=== PATIENT | female | born 1945 | race Caucasian/White ===

== ENCOUNTER 2019-12-27 09:51 | Outpatient (CLI) | payer OTHER, SELFPAY ==
[2019-12-27 10:37] LABS: Alanine Aminotransferase 15 U/L (4-35); Albumin Level 4.1 g/dL (3.5-5.1); Alkaline Phosphatase 69 U/L (38-126); Anion Gap 5 mmol/L (8-16); Aspartate Amino Transferase 21 U/L (14-36); Bilirubin,Total 0.6 mg/dL (0.2-1.3); Blood Urea Nitrogen 17 mg/dL (7-17); Calcium 8.7 mg/dL (8.4-10.2); Carbon Dioxide 28 mmol/L (22-30); Chloride 105 mmol/L (98-107); Cholesterol 204 mg/dL (0-200); Estimated Glomerular Filt Rate > 60; Glucose 101 mg/dL (65-105); HDL Direct 46 mg/dL; Sodium 138 mmol/L (137-145); Triglycerides 191 mg/dL (<150)
[2019-12-27 10:48] LABS: LDL Cholesterol Direct 115 mg/dL
[2019-12-27 11:10] LABS: Vitamin D 25 Hydroxy 44.2 ng/mL
== END 2019-12-27 09:52 | disposition home or self-care (01) ==
PROVIDERS: PCP Internal Medicine; Visit Provider Nurse Practitioner
DX: E78.5 Hyperlipidemia, unspecified (principal); E55.9 Vitamin D deficiency, unspecified
CPT/HCPCS: 36415; 80048; 80061; 80076; 82306

== ENCOUNTER 2020-01-16 12:42 | Outpatient (CLI) | payer OTHER, SELFPAY ==
--- NOTE | ~2020-01-16 | US_ITS ---
EXAMINATION: US soft tissue UE RT DATE: 01/16/2020 13:12 INDICATION: Localized swelling, mass/lump at the radial side of the right hand TECHNIQUE: Multiple grayscale and Doppler ultrasound images of the region of concern at the right pablo d in the region of the thenar eminence were obtained. COMPARISON: None FINDINGS: No abnormal mass or fluid collections identified. There are couple small shadowing degenerative loose osteochondral bodies versus hypertrophic osteophytes in the region of the base of the first metacarp al likely related to osteoarthritis. IMPRESSION: 1. No abnormal mass or fluid collections. 2. Likely osteoarthritis related loose bodies versus osteophytes along the base of the first metacarp al. This could be confirmed with plain radiographs if clinically indicated. Reviewed, dictated and finalized at location A. IMPRESSION: 1. No abnormal mass or fluid collections. 2. Likely osteoarthritis related loose bodies versus osteophytes along the base of the first metacarpal. This could be confirmed with plain radiographs if cli nically indicated.
== END 2020-01-16 12:43 | disposition home or self-care (01) ==
PROVIDERS: PCP Internal Medicine; Visit Provider Internal Medicine
DX: R22.31 Localized swelling, mass and lump, right upper limb (principal)
CPT/HCPCS: 76882

== ENCOUNTER 2020-07-01 17:00 | Outpatient (CLI) | payer OTHER, MEDICARE, SELFPAY | END 2020-07-01 17:01 | disposition home or self-care (01) | LOC: ANHCOVIDVC 17:00 | PROVIDERS: PCP Internal Medicine | DX: Z23 Encounter for immunization (principal) | CPT/HCPCS: 0001A; 91300 ==

== ENCOUNTER 2020-07-22 13:48 | Outpatient (CLI) | payer OTHER, MEDICARE, SELFPAY | END 2020-07-22 13:49 | disposition home or self-care (01) | LOC: ANHCOVIDVC 13:48 | PROVIDERS: PCP Internal Medicine | DX: Z23 Encounter for immunization (principal) | CPT/HCPCS: 0002A; 91300 ==

== ENCOUNTER 2021-01-18 07:04 | Outpatient (CLI) | payer OTHER, SELFPAY ==
[2021-01-18 08:02] LABS: Alanine Aminotransferase 15 U/L (4-35); Alkaline Phosphatase 67 U/L (38-126); Anion Gap 7 mmol/L (8-16); Aspartate Amino Transferase 20 U/L (14-36); Bilirubin,Total 0.5 mg/dL (0.2-1.3); Blood Urea Nitrogen 16 mg/dL (7-17); Calcium 8.7 mg/dL (8.4-10.2); Carbon Dioxide 27 mmol/L (22-30); Chloride 107 mmol/L (98-107); Cholesterol 226 mg/dL (0-200); Estimated Glomerular Filt Rate > 60; Glucose 102 mg/dL (65-110); HDL Direct 48 mg/dL; Potassium 4.1 mmol/L (3.4-5.0); Sodium 141 mmol/L (137-145); Triglycerides 185 mg/dL (<150)
[2021-01-18 08:13] LABS: LDL Cholesterol Direct 119 mg/dL
[2021-01-18 09:03] LABS: Vitamin D 25 Hydroxy 52.7 ng/mL
== END 2021-01-18 07:05 | disposition home or self-care (01) ==
PROVIDERS: PCP Internal Medicine; Visit Provider Nurse Practitioner
DX: E78.5 Hyperlipidemia, unspecified (principal); E55.9 Vitamin D deficiency, unspecified
CPT/HCPCS: 36415; 80053; 80061; 82306

== ENCOUNTER 2021-03-22 14:52 | Outpatient (CLI) | payer OTHER, SELFPAY ==
--- NOTE | ~2021-03-22 | DEXA_ITS ---
Bone Density Report Name: Terra Shi Age: 75 Sex: Female Ethnicity: White Date of : 1945 Indication: osteopenia; monitoring treatment; height loss; postmenopausal Referring Provider: AMELIA GIRON Study: Bone densitometry was performed. Exam Date: March 22, 2021 Accession number: [id number] Bone Density: Region BMD T-score Z-score Classification AP Spine (L1-L4) 0.892 -1.4 1.0 Osteopenia Femoral Neck (Left) 0.641 -1.9 0.2 Osteopenia Total Hip (Left) 0.766 -1.4 0.4 Osteopenia Total Hip Bilateral Avg 0.770 -1.4 0.4 Osteopenia Femoral Neck (Right) 0.636 -1.9 0.2 Osteopenia Total Hip (Right) 0.774 -1.4 0.4 Osteopenia World Health Organization criteria for BMD impression classify patients as: Normal (T-score at or above -1.0), Osteopenia (T-score between -1.0 and -2.5), or Osteoporosis (T-score at or below -2.5). 10-year Fracture Risk: FRAX not reported because: Treated for osteoporosis Previous Exams: Region Exam Age BMD T-score BMD Change BMD Change Date g/cm2 vs Baseline vs Previous AP Spine(L1-L4) 03/22/2021 75 0.892 -1.4 0.003(0.3%) 0.003(0.3%) 01/31/2019 73 0.890 -1.4 Total Hip(Left) 03/22/2021 75 0.766 -1.4 -0.033(-4.2%)* -0.033(-4.2%)* 01/31/2019 73 0.799 -1.2 Total Hip(Right) 03/22/2021 75 0.774 -1.4 -0.035(-4.3%)* -0.035(-4.3%)* 01/31/2019 73 0.809 -1.1 *Denotes significance at 95% confidence level, LSC for AP Spine = 0.022 g/cm2, LSC for Total Hip = 0.027 g/cm2 Clinical Information Provided by Patient: Is being treated for osteoporosis Has used the following medications: Fosamax (i.e. alendronate), Vitamin D Patient maximum height was 64 Menopause Age: 50 Drinks caffeinated beverages Onset of menses at age 15 Number of children 2 Impression: The patient has low bone mass, based on the Left Femoral Neck T-score. The BMD for the Total Hip(Left) decreased, changing by -4.2% since the last DXA exam. The BMD for the Total Hip(Right) decreased, changing by -4.3% since the last DXA exam. Discussion: SIGNIFICANT BONE LOSS OBSERVED. Adherence to therapy (including calcium and vitamin D intake) should be assessed. If compliance is not a factor, review management and exclusion of secondary causes of bone loss. It is important to ask patients whether they are taking their medications and to encourage continued and appropriate compliance with their osteoporosis therapies to reduce fracture risk. It is also importa
--- NOTE | ~2021-03-22 | MM_ITS ---
EXAMINATION: MM screening [facility] BI w anisha HISTORY: Screening mammogram TECHNIQUE: Craniocaudal and mediolateral oblique 3-D tomosynthesis images were obtained and synthetic 2-D images were generated. CAD analysis was submitted and interpreted. COMPARISON: 07/12/2018, 06/18/2018, 05/21/2017, 04/27/2017 BREAST PARENCHYMAL COMPOSITION: There are scattered areas of fibroglandular density. FINDINGS: There is no evidence of suspicious mass, calcification, or architectural distortion to sugg est malignancy in either breast. There has been no suspicious interval change. IMPRESSION: 1. No mammographic evidence of malignancy. 2. Recommend routine screening mammography in one year. BI-RADS Category 1: Negative Reviewed, dictated and finalized at location A. COORDINATOR
== END 2021-03-22 14:53 | disposition home or self-care (01) ==
PROVIDERS: PCP Internal Medicine; Visit Provider Nurse Practitioner
DX: Z12.31 Encounter for screening mammogram for malignant neoplasm of breast (principal); M81.0 Age-related osteoporosis without current pathological fracture; M85.88 Other specified disorders of bone density and structure, other site; M85.852 Other specified disorders of bone density and structure, left thigh; M85.851 Other specified disorders of bone density and structure, right thigh
CPT/HCPCS: 77063; 77067; 77080

== ENCOUNTER 2022-02-07 07:17 | Outpatient (CLI) | payer OTHER, SELFPAY ==
[2022-02-07 07:51] LABS: Alanine Aminotransferase 18 U/L (6-35); Albumin Level 4.3 g/dL (3.5-5.1); Alkaline Phosphatase 69 U/L (38-126); Anion Gap 11 mmol/L (8-16); Aspartate Amino Transferase 21 U/L (14-36); Bilirubin,Total 0.6 mg/dL (0.2-1.3); Blood Urea Nitrogen 17 mg/dL (7-17); Calcium 8.7 mg/dL (8.4-10.2); Carbon Dioxide 27 mmol/L (22-30); Chloride 102 mmol/L (98-107); Cholesterol 223 mg/dL (0-200); Estimated Glomerular Filt Rate > 60; Glucose 106 mg/dL (65-110); HDL Direct 50 mg/dL; Potassium 3.8 mmol/L (3.4-5.0); Sodium 140 mmol/L (137-145); Triglycerides 157 mg/dL (<150)
[2022-02-07 08:06] LABS: LDL Cholesterol Direct 124 mg/dL
[2022-02-07 08:21] LABS: Vitamin D 25 Hydroxy 51.6 ng/mL
== END 2022-02-07 07:18 | disposition home or self-care (01) ==
LOC: ANHLAB 07:19
PROVIDERS: PCP Internal Medicine; Visit Provider Nurse Practitioner
DX: E78.5 Hyperlipidemia, unspecified (principal); E55.9 Vitamin D deficiency, unspecified
CPT/HCPCS: 36415; 80053; 80061; 82306

== ENCOUNTER → 2022-05-15 15:06 | Outpatient (CLI) | payer OTHER, SELFPAY ==
--- NOTE | ~2022-05-15 | MM_ITS ---
EXAMINATION: MM screening [facility] BI w anisha HISTORY: Screening mammogram TECHNIQUE: Craniocaudal and mediolateral oblique 3-D tomosynthesis images were obtained and synthetic 2-D images were generated. CAD analysis was submitted and interpreted. COMPARISON: 03/22/2021, 07/02/2018, 06/18/2018 BREAST PARENCHYMAL COMPOSITION: The breasts are heterogeneously dense, which may obscure small masses . FINDINGS: No suspicious mass, calcification, or architectural distortion are identified in either mouna ast to suggest malignancy. There has been no suspicious interval change. IMPRESSION: 1. No mammographic evidence of malignancy. 2. Recommend routine screening mammography in one year. BI-RADS Category 1: Negative Reviewed, dictated and finalized at location A. OMER SUPPLY CHAIN ANALYST
== END ==
PROVIDERS: PCP Internal Medicine; Visit Provider Internal Medicine
DX: Z12.31 Encounter for screening mammogram for malignant neoplasm of breast (principal)
CPT/HCPCS: 77063; 77067

== ENCOUNTER 2023-02-10 10:22 | Outpatient (CLI) | payer OTHER, SELFPAY ==
[2023-02-10 10:41] LABS: Hematocrit 46.5 % (37.0-47.0); Hemoglobin 15.3 g/dL (12.0-15.0); Mean Corpuscular HGB Conc 32.9 g/dl (32-36); Mean Corpuscular Hemoglobin 29.7 pg (26-34); Mean Corpuscular Volume 90.1 fl (80-100); Mean Platelet Volume 9.6 fl (7.4-10.4); Platelet Count Result 297 k/mm3 (150-375); Red Blood Count 5.16 M/mm3 (4.2-5.4); Red Cell Distribution Width 12.7 % (11.5-14.5); White Blood Count 6.4 K/mm3 (4.5-10.0)
[2023-02-10 11:04] LABS: Alanine Aminotransferase 19 U/L (6-35); Albumin Level 4.3 g/dL (3.5-5.1); Alkaline Phosphatase 75 U/L (38-126); Anion Gap 4 mmol/L (8-16); Aspartate Amino Transferase 24 U/L (14-36); Bilirubin,Total 0.8 mg/dL (0.2-1.3); Blood Urea Nitrogen 17 mg/dL (7-17); Carbon Dioxide 30 mmol/L (22-30); Chloride 106 mmol/L (98-107); Cholesterol 237 mg/dL (0-200); Estimated Glomerular Filt Rate > 60; Glucose 104 mg/dL (65-110); HDL Direct 53 mg/dL; Potassium 4.1 mmol/L (3.4-5.0); Sodium 140 mmol/L (137-145); Triglycerides 160 mg/dL (<150)
[2023-02-10 11:19] LABS: Vitamin D 25 Hydroxy 50.2 ng/mL
[2023-02-10 11:23] LABS: LDL Cholesterol Direct 133 mg/dL
== END 2023-02-10 10:23 | disposition home or self-care (01) ==
LOC: ANHLAB 10:24
PROVIDERS: PCP Family Medicine; Visit Provider Family Medicine
DX: E55.9 Vitamin D deficiency, unspecified (principal); E78.5 Hyperlipidemia, unspecified
CPT/HCPCS: 36415; 80053; 80061; 82306; 85027

== ENCOUNTER 2023-07-25 13:58 | Outpatient (CLI) | payer OTHER, SELFPAY ==
--- NOTE | ~2023-07-25 | XR_ITS ---
EXAMINATION: XR lumbar spine 2-3V DATE: 07/25/2023 14:19 INDICATION: Lumbar radiculopathy TECHNIQUE: Anteroposterior and lateral views of the lumbar spine, and cone-down lateral view of the l umbosacral junction were obtained. COMPARISON: None. FINDINGS: There are 7 degrees of lumbar levocurvature. Bone alignment is normal. There is no fracture . The vertebral body heights are maintained. There is moderate loss of intervertebral disc space heig ht at L1-2 and L2-3. There is mild facet joint osteoarthritis of the lower lumbar spine. IMPRESSION: 1. Mild lumbar spondylosis without acute findings. Reviewed, dictated and finalized at location F.
== END 2023-07-25 13:59 | disposition home or self-care (01) ==
PROVIDERS: PCP Family Medicine; Visit Provider Nurse Practitioner
DX: M47.26 Other spondylosis with radiculopathy, lumbar region (principal)
CPT/HCPCS: 72100

== ENCOUNTER 2023-08-06 14:25 | Outpatient (CLI) | payer OTHER, SELFPAY ==
--- NOTE | ~2023-08-06 | MR_ITS ---
MRI of the lumbar spine Clinical History: Radiculopathy Technique: Axial T2-weighted images, and sagittal T1-weighted, T2-weighted, and and T2 fat-sat images were acquired. Findings: There is no fracture of the lumbar spine. There is minimal grade 1 retrolisthesis of L2 ove r L3. No suspicious bone marrow signal abnormality seen. At L1-L2, there is moderate degenerative disc narrowing with minimal disc bulge and mild facet arthro inocente. No central canal stenosis or neural foraminal narrowing. At L2-L3, there is mild degenerative disc change with minimal disc bulge and mild facet arthropathy. No central canal stenosis. Probable minimal right neural foraminal narrowing. Left neural foramen pre served. At L3-L4, there is mild disc bulge with advanced facet arthropathy. No central canal stenosis. There is moderate to severe right neural foraminal narrowing, and moderate left neural foraminal narrowing. At L4-L5, there is disc bulge and severe facet arthropathy. No central canal stenosis. There is mild bilateral neural foraminal narrowing. At L5-S1, there is mild disc bulge and moderate to advanced facet arthropathy. No central canal steno sis. There is moderate left neural foraminal narrowing, and mild right neural foraminal narrowing. Paravertebral soft tissues are unremarkable. Impression: [id number] degenerative spondylosis, as above. Reviewed, dictated and finalized at [facility]. Impression: [id number] degenerative spondylosis, as above.
== END 2023-08-06 14:26 ==
LOC: MICIMG 14:27
PROVIDERS: PCP Family Medicine; Visit Provider Nurse Practitioner
DX: M47.26 Other spondylosis with radiculopathy, lumbar region (principal)
CPT/HCPCS: 72148

== ENCOUNTER 2023-08-07 15:11 | Emergency (ER) | payer OTHER, SELFPAY ==
[2023-08-07] VITALS (15 sets, daily range): BP systolic 138–168; BP diastolic 51–63; PULSE 63–82; RESP 13–24; TEMP 36.6–36.7; O2SAT 93–98
--- NOTE | ~2023-08-07 | XR_ITS ---
XR femur RT min 2V 08/07/2023 17:09 Indication: Right leg pain Procedure: 2 views right femur Comparison: No prior studies for comparison. Findings: No fracture, subluxation or dislocation. No focal soft tissue abnormality. No foreign brayden s. Impression: 1: No acute bone or joint abnormality. Reviewed, dictated and finalized at location A. Impression: 1: No acute bone or joint abnormality.
--- NOTE | ~2023-08-07 | CT_ITS ---
EXAMINATION: CT femur LT wo con DATE: 08/07/2023 16:57 INDICATION: Left femur fracture TECHNIQUE: Computed tomography (CT) of the left femur was performed without intravenous contrast. The dose-length product was 925.37 mGy-cm. Automated exposure control and iterative reconstruction techn ique were employed. COMPARISON: 08/07/2023 FINDINGS: There is a oblique extra-articular fracture proximal diaphysis of the left femur with appro ximately one and a half bone width dorsal and one half bone width lateral displacement. There is over riding of fracture fragments measuring approximately 3 cm. There is external rotation and valgus angu lation. There is probable intramuscular hematoma in the surrounding muscles with effacement of the fa t planes. There is mild osteoarthritis of the left hip. IMPRESSION: 1. Displaced, angulated extra-articular fracture proximal left femoral diaphysis with overriding of f racture fragments and external rotation. Reviewed, dictated and finalized at location A. IMPRESSION: 1. Displaced, angulated extra-articular fracture proximal left femoral diaphysi s with overriding of fracture fragments and external rotation.
--- NOTE | ~2023-08-07 | XR_ITS ---
XR femur LT min 2V, XR hip LT 2V w AP pelvis 08/07/2023 15:51 Indication: Left hip pain after fall Procedure: 4 views left hip and 2 views left femur Comparison: No prior studies for comparison. Findings: There is a transversely oriented extra-articular fracture proximal left femoral diaphysis w ith lateral displacement, overriding of fracture fragments and varus angulation. There is also a rota tory component. There is mild osteoarthritis of the left Impression: 1: Displaced, angulated overriding fracture of the proximal left femoral diaphysis. Reviewed, dictated and finalized at location A. Impression: 1: Displaced, angulated overriding fracture of the proximal left femoral diaphy sis. Impression: 1: Displaced, angulated overriding fracture of the proximal left femoral diaphy sis.
[2023-08-07 15:37] LABS: Basophils Percent Auto 0.1 % (0.2-1.2); Eosinophils Percent Auto 0.1 % (0-4.4); Hematocrit 42.8 % (37.0-47.0); Hemoglobin 14.3 g/dL (12.0-15.0); Immature Granulocyte Absolute 0.09 K/mm3 (0.00-0.031); Immature Granulocyte Percent A 0.6 % (0-0.5); Lymphocytes Absolute Auto 0.86 K/mm3 (0.9-3.2); Lymphocytes Percent Auto 5.5 % (18.3-44.2); Mean Corpuscular HGB Conc 33.4 g/dl (32-36); Mean Corpuscular Hemoglobin 29.6 pg (26-34); Mean Corpuscular Volume 88.6 fl (80-100); Mean Platelet Volume 9.7 fl (7.4-10.4); Monocytes Absolute Auto 1.1 K/mm3 (0.1-0.6); Neutrophils Absolute Auto 13.6 K/mm3 (1.3-6.7); Neutrophils Percent Auto 86.7 % (45.5-73.1); Platelet Count Result 324 k/mm3 (150-375); Red Blood Count 4.83 M/mm3 (4.2-5.4); Red Cell Distribution Width 13.4 % (11.5-14.5); White Blood Count 15.7 K/mm3 (4.5-10.0)
[2023-08-07 15:50] LABS: Alanine Aminotransferase 26 U/L (6-35); Albumin Level 4.1 g/dL (3.5-5.1); Alkaline Phosphatase 70 U/L (38-126); Anion Gap 8 mmol/L (4-12); Aspartate Amino Transferase 28 U/L (14-36); Blood Urea Nitrogen 26 mg/dL (7-17); Carbon Dioxide 22 mmol/L (22-30); Chloride 107 mmol/L (98-107); Estimated CRCL calculation 70 ml/min; Estimated Glomerular Filt Rate > 60; Glucose 117 mg/dL (65-110); Potassium 3.8 mmol/L (3.4-5.0); Sodium 137 mmol/L (137-145)
[2023-08-07 15:57] LABS: INR 1.1; Prothrombin Time 14.6 Seconds (11.1-14.7)
[2023-08-07] MEDS: SODIUM CHLORIDE 0.9% IV 1,000 ML 125 ML IV CONT (16:24)
[2023-08-07] MEDS: HYDROmorphone HCL INJ (*CRX) 1 MG/ML SYR IV PUSH ×4 (16:25→22:49)
[2023-08-07] MEDS: ONDANSETRON INJ 4 MG/2 ML VIAL IV PUSH (16:25)
--- NOTE | 2023-08-07 16:26 | PC.NURSE ---
Dr. Smallwood in to speak with pt & spouse concerning POC. Both agreeable
--- NOTE | 2023-08-07 17:52 | ED.LOWEXIN ---
HPI - Extremity Injury (Lower) General Chief Complaint: Extremity Injury, Lower <Jairo Ortiz MD - Last Filed: 08/07/23 18:49> Stated Complaint: LLE pain <Jairo Ortiz MD - Last Filed: 08/07/23 18:49> Time Seen by Provider: 08/07/23 15:15 <Jairo Ortiz MD - Last Filed: 08/07/23 18:49> Source: patient <Jairo Ortiz MD - Last Filed: 08/07/23 18:49> Mode of arrival: EMS <Jairo Ortiz MD - Last Filed: 08/07/23 18:49> Limitations: no limitations <Jairo Ortiz MD - Last Filed: 08/07/23 18:49> History of Present Illness HPI Narrative: 78-year-old with a history of osteoporosis here with a complaint of sudden onset of left leg pain since last night. Patient states that she was trying to put a container hand the refrigerator and while she was turning she felt a pop in her left thigh pain since this morning she is unable to bear weight on the leg. She denies any fall. <Jairo Ortiz MD - Last Filed: 08/07/23 18:49> Related Data Allergies/Adverse Reactions: Allergies Allergy/AdvReac Type Severity Reaction Status Date / Time No Known Allergies Allergy Verified 07/31/23 12:34 <Jairo Ortiz MD - Last Filed: 08/07/23 18:49> Review of Systems Review of Systems: All systems reviewed & are unremarkable except as noted in HPI and below <Jairo Ortiz MD - Last Filed: 08/07/23 18:49> Eyes: Eyes: Reports no additional eye complaints <Jairo Ortiz MD - Last Filed: 08/07/23 18:49> ENT: Reports system reviewed and no additional complaints, except as documented <Jairo Ortiz MD - Last Filed: 08/07/23 18:49> Cardiovascular: Cardiovascular: Reports no additional cardiovascular complaints <MD Yasmin Nicholson Last Filed: 08/07/23 18:49> Respiratory: Respiratory: Reports no additional respiratory complaints <Jairo Ortiz MD - Last Filed: 08/07/23 18:49> Gastrointestinal: Gastrointestinal: Reports no additional gastrointestinal complaints <Jairo Ortiz MD - Last Filed: 08/07/23 18:49> Musculoskeletal: Musculoskeletal: Reports as per HPI <Jairo Ortiz MD - Last Filed: 08/07/23 18:49> Neurologic: Reports system reviewed and no additional complaints, except as documented <Jairo Ortiz MD - Last Filed: 08/07/23 18:49> PMFSH Family History Family History: Family History Sibling Patient's sister is in good health Patient's brother is in good health Father Carcinoma of colon Patient's father is Mother Family history of heart disease in male family member before age 55, Onset Age: 92 Patient's mother is Family history of cardiovascular disease, Onset Age: 92 <Jairo Ortiz MD - Last Filed: 08/07/23 18:49> Social History Social History: Social History Smoking status: Never smoker Second hand tobacco smoke exposure: No Alcohol intake: never Substance use: never Substance use type: does not use <Jairo Ortiz MD - Last Filed: 08/07/23 18:49> Course Course Emergency Course: Patient and her pain was notified about the lab work, x-rays CT findings. I discussed with Dr. Martino who reviewed CT and x-ray findings. Patient needs to be transferred to either [facility] or [facility] I spoke to [facility] , they are not accepting pts at this time ,they are in the red zone I spoke to Dr Carroll Sales at [facility] , will accept the pt however ER is not accepting pts. <Jairo Ortiz MD - Last Filed: 08/07/23 18:49> Patient and her pain was notified about the lab work, x-rays CT findings. I discussed with Dr. Martino who reviewed CT and x-ray findings. Patient needs to be transferred to either [facility] or [facility] I spoke to [facility] , they are not accepting pts at this time ,they are in the red zone I spoke to Dr Carroll Sales at [facility] , will accept the pt however ER is not acce
--- NOTE | 2023-08-07 19:31 | PC.NURSE ---
Report to Adelaida HERNANDEZ
[2023-08-08] MEDS: HYDROmorphone HCL INJ (*CRX) 1 MG/ML SYR IV PUSH (00:12)
== END 2023-08-08 00:15 | disposition short-term general hospital (02) ==
PROVIDERS: Family Medicine; Emergency Provider Emergency Medicine; PCP Family Medicine
DX: S79.092A Other physeal fracture of upper end of left femur, initial encounter for closed fracture (principal); M81.0 Age-related osteoporosis without current pathological fracture; X50.9XXA Other and unspecified overexertion or strenuous movements or postures, initial encounter
CPT/HCPCS: 36415; 73502; 73552; 73700; 80053; 85025; 85610; 96361; 96374; 96375; 96376; 99285; J1170; J2405; J7030

== ENCOUNTER 2023-12-19 12:30 | Outpatient (RCR) | payer OTHER, SELFPAY ==
--- NOTE | 2023-11-08 10:01 | OPREHPOC ---
Outpatient Therapy Plan of Care This is a Multidisciplinary Plan of Care that may contain components documented by all disciplines (PT, OT, and ST.) PT Problem 1 PT Problem #1 Knowledge Deficit PT Goal 1 Goal *indep with HEP * correct use of assistive device Target Visit 8 PT Problem 2 PT Problem #2 Impaired Strength PT Goal 1 Goal increase strength of L hip to improve mobility and gait skills 1* supine SLR x 20 reps 2* side lying hip abduction to 5' x 20 reps 3* supine bridge x 20 reps 4* sit/stand without use of UE x 5 reps Target Visit 8 PT Problem 3 PT Problem #3 Impaired Functional Mobility PT Goal 1 Goal 1* 2 minute walking test distance with small base quad cane, 150' 2* 5 reps sit/stand time of 18 seconds 3* up/down 8 steps with small base quad cane, without hand rail, indep 4* pt report walking in community Target Visit 8
--- NOTE | 2023-11-08 10:01 | PTOPEVAL1 ---
Assessment and note entered by Paige Starr, PT Evaluation Information Assessment Status Evaluation Diagnosis s/pL femur fracture with ORIF S72.009A ICD-10 Condition Codes (PT) Difficulty Walking R26.2,R26.9,Weakness R53.1 Onset August 06, 2023 Subjective Information had pain in L leg, did not fall; surgery by Dr Ramesh Watson--return appt Dec 26; had in pt rehab, [facility] PT treatment; have not been going out into community- staying home; is doing HEP from previous therapy and walking in hallway at home now assists with home chores and shopping- -pt had done indep prior to surgery. use wheeled walker; indep with bathing- grab bars, built in seat & dressing; one entry step into home one level and have ramp into front door; GOAL: walk with cane; get ready for trip to [place] for son's wedding; Reported Pain Level Pain Score Self Report Additional Pain Score Comments pain range in the past week 0-2/10; lateral L hip decrease pain with ice and aleve PRN; sleep is not disrupted due to hip pain; Assessment PT Clinical Summary Terra is s/p L femur ORIF in July. She has completed hospital, in pt and [facility] PT services. She is using the wheeled walker in her home. is helping with home tasks, but she is indep with bathing and self care. With the evaluation: decreased strength of L hip in all motions; initiated gait with small base quad cane and stairs with cane and 1 railing; 5 reps sit/stand time of 24 seconds with 1 UE use and 2 minute walking test with small base quad cane, of 65'; Skilled PT services are indicated for LE strengthening, gait and balance retraining, to improve mobility and home activity level, with return to community ambulation and education for HEP and gait dewvice. Plan of Care Interventions Gait Training,Hot Pack/Cold Pack,Manual Therapy, Neuro Re-education,Patient/Caregiver Education, Therapeutic Activities,Therapeutic Exercise PT Services Indicated Yes Treatment Frequency and 2x/w
--- NOTE | 2023-12-13 13:19 | PCPTNOTE ---
pt did not show for today's appt. Called her home--- states they forgot about appt ; reminded him of the next appt and he stated she will be here.
--- NOTE | 2023-12-19 13:11 | PTOPDC ---
Assessment and note entered by Paige Starr, PT Discharge Report Assessment Status Discharge Diagnosis s/pL femur fracture with ORIF S72.009A ICD-10 Condition Codes (PT) Difficulty Walking R26.2,R26.9,Weakness R53.1 Onset August 06, 2023 Subjective Information doing OK walking- use the cane or the wheeled walker; have not had any falls; no longer able to vacuum at home, everything else can do; Reported Pain Level Pain Score Self Report Additional Pain Score Comments no pain in hip over the past week; Assessment PT Clinical Summary Terra has received a total of 7 PT sessions. She did not show for 1 appointment. Compared to the initial evaluation: no longer reports pain in her L hip; increase strength of R and L LE wtih mat exercises and mobility skills; 2 minute walking test distance with small base quad cane from 65' to 160'; 5 reps sit/stand time from 24 to 14 seconds with use of 1 UE; She is using the wheeled walker or small base quad cane for walking--depend upon the distance and how she feels. Education completed for HEP and gait/mobility safety. The goals were achieved, except sit/stand transfer without use of UE's. Discharge PT. Terra is to continue with her HEP and increase walking and activity as tolerated. Plan of Care PT Services Indicated No
== END 2023-12-19 13:45 | disposition home or self-care (01) ==
LOC: ANHPT 12:30
PROVIDERS: PCP Family Medicine; Visit Provider Nurse Practitioner Family
DX: S72.009D Fracture of unspecified part of neck of unspecified femur, subsequent encounter for closed fracture with routine healing (principal)
CPT/HCPCS: 97110; 97112; 97116; 97161; 97530

== ENCOUNTER 2024-02-23 11:11 | Outpatient (CLI) | payer OTHER, SELFPAY ==
[2024-02-23 11:38] LABS: Hemoglobin 14.9 g/dL (12.0-15.0); Mean Corpuscular HGB Conc 32.4 g/dl (32-36); Mean Corpuscular Hemoglobin 29.2 pg (26-34); Mean Corpuscular Volume 90.2 fl (80-100); Mean Platelet Volume 9.9 fl (7.4-10.4); Platelet Count Result 287 k/mm3 (150-375); Red Cell Distribution Width 13.2 % (11.5-14.5); White Blood Count 7.7 K/mm3 (4.5-10.0)
[2024-02-23 11:47] LABS: Hemoglobin A1C 5.1 % (<5.7)
[2024-02-23 11:51] LABS: Alanine Aminotransferase 16 U/L (6-35); Albumin Level 4.2 g/dL (3.5-5.1); Alkaline Phosphatase 133 U/L (38-126); Anion Gap 7 mmol/L (4-12); Aspartate Amino Transferase 20 U/L (14-36); Bilirubin,Total 0.8 mg/dL (0.2-1.3); Blood Urea Nitrogen 21 mg/dL (7-17); Calcium 8.9 mg/dL (8.4-10.2); Carbon Dioxide 29 mmol/L (22-30); Chloride 103 mmol/L (98-107); Cholesterol 217 mg/dL (0-200); Estimated Glomerular Filt Rate > 60; Glucose 98 mg/dL (65-110); HDL Direct 49 mg/dL; Potassium 4.3 mmol/L (3.4-5.0); Sodium 139 mmol/L (137-145); Triglycerides 225 mg/dL (<150)
[2024-02-23 12:02] LABS: LDL Cholesterol Direct 107 mg/dL
[2024-02-23 12:30] LABS: Vitamin D 25 Hydroxy 40.7 ng/mL
== END 2024-02-23 11:12 | disposition home or self-care (01) ==
PROVIDERS: PCP Family Medicine; Visit Provider Family Medicine
DX: E78.5 Hyperlipidemia, unspecified (principal); I10 Essential (primary) hypertension; M81.0 Age-related osteoporosis without current pathological fracture; R73.9 Hyperglycemia, unspecified; E55.9 Vitamin D deficiency, unspecified
CPT/HCPCS: 36415; 80053; 80061; 82306; 83036; 85027

== ENCOUNTER 2024-07-23 16:39 | Outpatient (CLI) | payer OTHER, SELFPAY ==
[2024-07-23 17:06] LABS: Alanine Aminotransferase 16 U/L (6-35); Aspartate Amino Transferase 28 U/L (14-36)
--- OUTSIDE RECORDS SUMMARY | 2024-07-23 17:17 | XMS_ITS | Clinical Summary ---
Author Organization [facility] Address [address] [place] [address] Phone Care Team Providers Care Auditing Manager Name Role Phone Tiago Smith MD Primary Care Provider [phone] Allergies No known active allergies Medications sennosides-docu sate sodium (SENNA-S) 8.6-50 mg tablet Take 2 Tablets by mouth 2 times daily. 08/14/2023 Active polyethylene glycol (MIRALAX) 17 gram Powder in Packet Take 1 Packet (17 Grams) by mouth 1 time daily as needed for Constipation . 08/14/2023 Active multivitamin tx with iron and folic acid tablet 18-400 mg-mcg Tablet Take 1 Tablet by mouth daily. 08/15/2023 Active HYDROcodone-john taminophen (NORCO) 5-325 mg tabletIndicatio ns:Closed displaced comminuted fracture of shaft of left femur, initial encounter ([facility]) Take 1 Tablet by mouth every 4 hours as needed for Pain. Max Daily Amount: 6 Tablets 20 Tablet 08/14/2023 Active amLODIPine (NORVASC) 5 mg tablet Take 1 Tablet (5 mg) by mouth daily. 08/15/2023 Active Active Problems Problem Noted Date Diagnosed Date Hypertension 08/14/2023 Age-related osteoporosis wit h current pathological fracture with routine healing 08/08/2023 Closed left hip fracture, initial encounter 07/29 Closed displaced comminuted fracture of shaft of left femur 08/08/2023 Encounters Date Type Department Care Team Description 06/03/2024 External Device Data [facility] ABSTRACTION Provider, Abstract 05/21/2024 External Device Data [facility] ABSTRACTION Provider, Abstract 05/21/2024 External Device Data [facility] ABSTRACTION Provider, Abstract from Last 3 Months Social History Tobacco Use Types Packs/Day Years Used Date Smoking Tobacco: Never Tobacco Cessation:Counseling Given: Not Answered Alcohol Use Standard Drinks/Week Comments Never 0 (1 standard drink = 0.6 oz pur e alcohol) Feeling Safe Answer Date Recorded Are you in a relationship wi th someone who hurts you emotionally and/or physically? No 08/08/2023 Food Insecurity Answer Date Recorded Social/Environmental Concerns No concerns Transportation Needs Answer Date Record ed Social/Environmental Concerns No concerns Housing Stability Answer Date Recorded Social/Environmental Concerns No concerns Utility Needs Answer Date Recorded Social/Environmental Concerns No concerns Comments Unknown Sex and Gender Information Value Date Recorded Sex Assigned at Not on file Legal Sex Female 7:16 PM CDT Gender Identity Not on file Sexual Orientation Not on file Last Filed Vital Signs Vital Sign Reading Time Taken Comments Blood Pressure 144/56 08/14/2023 4:51 AM CDT Pulse 80 08/14/2023 4:51 AM CDT Temperature 36.4 C (97.5 F) 08/14/2023 4:51 AM CDT Respiratory Rate 18 08/14/2023 4:51 AM CDT Oxygen Saturation 93% 08/14/2023 4:51 AM CDT Inhaled Oxygen Concentration - - Weight 73.3 kg (161 lb 11.2 oz) 08/08/2023 6:34 AM CDT Height 157.5 cm (5' 2 ) 08/08/2023 6:34 AM CDT Body Mass Index 29.58 08/08/2023 6:34 AM CDT Plan of Treatment Health Maintenance Due Date Last Done Comments DTAP/TDAP/TD VACCINES (1 - Tdap) 1964 PNEUMOCOCCAL VACCINE 50+ YEARS (1 of 1 - PCV) 05/28/18 96 ZOSTER VACCINE (1 of 2) 1995 OSTEOPOROSIS SCREENING 2010 RSV VACCINE (60+ or ) (1 - 1-dose 75+ series) 2020 INFLUENZA VACCINE (#1) 2023 Medicare Advantage (ID) Prev entative Visit/Annual Wellness Visit 04/30/2024 Medical Devices Implanted Type Area Senior Vice President & General Counsel Device Identifier Shelf Expiration Date Model / Serial / Lot 11mm / Ti Deshawn Frn / Pf 360mm / Left - Sterile Implanted:Qty: 1 on 08/08/2023 by Ramesh Watson MD at [facility] Left: Femur [employer] [facility] 06/28/2031 04.033.137 S / / [id number] Description:Material: Ti-gAI -7Nb 5.0 X 68 Nail Locking Screw Implanted:Qty: 1 on 08/08/2023 by Ramesh Watson MD at [facility] Left: Femur [employer] [facility] 04.045.068 / / Description:All Synthes comp onents, Requisition, #[id number] 5.0 X 34 Nail Locking Screw Implanted:Qty: 1 on 08/08/2023 by Ramesh Watson MD at [facility] Left: Femur [employer] [facility] 04.045.034 / / 5.0 X 62 Nail Locking Screw Implanted:Qty: 1 on 08/08/2023 by Ramesh Watson MD at [facility] Left: Femur [employer] [facility] 04.045.062 / / Insurance [facility] Address: [place] [address] Advance Directives For more information, please contact: [phone] * Full Code (Latest Code Status on File) Date Activated Date Inactivated Comments 08/09/2023 12:58 AM 08/14/2023 4:34 PM * Full Code Date Activated Date Inactivated Comments 08/08/2023 11:39 AM 08/09/2023 12:58 AM * Default Full Code - Needs Discussion Date Activated Date Inactivated Comments 08/08/2023 8:47 AM 08/08/2023 11:39 AM Care Teams Auditing Manager Relationship Specialty Start Date End Date Tiago Smith MD [address] [place] [id number] PCP - General Family Practice 08/08/23
--- OUTSIDE RECORDS SUMMARY | 2024-07-23 17:17 | XMS_ITS | Continuity of Care Document ---
Author Organization [facility] Address [address] [place] [address] Phone Care Team Providers Care Live Study Manager Name Role Phone Flora Rosen Unavailable Unavailable Advance Directives Directive Yes / No Effective Date File Name No Information Encounters Encounter Description Practice Location Reason(s) For Visit Diagnoses Date Provider Providers Copied on Encounter [facility], [address], [place], [place], [id number], [place] tel:[phone] [facility] No Information Nov-0 6-200 0 Jessika Hines. [address] , [address], [place], [address], [place]. tel:[phone] Family History Family Member Type Diagnosis Age At Onset No Information Payers Payer name Insurance type Covered constitution party ID Authoriza tion(s) No Information Social History [...]
--- OUTSIDE RECORDS SUMMARY | 2024-07-23 17:17 | XMS_ITS ---
Author Name Rayna Pacheco Address [address] [place] [address] Phone [phone] Organization [facility] ice Address [address] [place] [address] Phone [phone] Care Team Providers Care Former Hand Name Role Phone Rayna Pacheco Unavailable Manny Rice Unavailable [phone] Ish Ramirez Unavailable Functional Status Mental Status Allergies and Intolerances Encounters Immunizations Medications Problems Vital Signs Reason for Referral
== END 2024-07-23 16:40 | disposition home or self-care (01) ==
LOC: ANHLAB 16:42
PROVIDERS: PCP Family Medicine; Visit Provider Podiatrist Foot & Ankle Surgery
DX: B35.1 Tinea unguium (principal)
CPT/HCPCS: 36415; 84450; 84460

== ENCOUNTER 2024-09-02 14:03 | Outpatient (CLI) | payer OTHER, SELFPAY ==
--- OUTSIDE RECORDS SUMMARY | 2024-09-02 14:06 | XMS_ITS ---
Author Name Auto Generated, Auto Generated Organization [employer] [facility] ices Address [address] [place] [address] Phone [phone] Care Team Providers Care Straightedge Machine Operator Helper Name Role Phone Rayna Pacheco Unavailable [phone] Manny Rice Unavailable [phone] Ish Ramirez Unavailable Functional Status No Results Mental Status No Results Allergies and Intolerances Name Onset Date Reaction Severity No Known Allergies (Allergy) SunAug 13 15:24:00 EDT 2023 Medications Medication Directions Start Date End Date Stimulant Laxative Plus 8.6 mg-50 mg tablet 2 tab TABLET Oral PRN 2 Times Daily Indication: Constipation SunAug 25 13:43:00 EDT 2023August 31 01:00:00 EDT 2023 Imodium A-D 2 mg tablet 1 tab TABLET Ora l PRN Every 6 Hours Indication: Diarrhea SunAug 18 17:54:00 EDT 2023August 31 01:00:00 EDT 2023 meloxicam 15 mg tablet 1 tab TABLET Oral 1 Time Daily Indication: Pain SunAug 14 10:23:00 EDT 2023August 29 10:03:00 EDT 2023 TubersoL 5 tub. unit/0.1 mL intradermal injection solution 0.1 ml VIAL (ML) Intradermal 1 Time Weekly for 2 Weeks Indication: Rule out TB 1st injection on admission, then one week after. Read between 48 and 72 hours SunAug 14 13:30:00 EDT 2023August 28 13:29:00 EDT 2023 TubersoL 5 tub. unit/0.1 mL intradermal injection solution Read Results VIAL (ML) Other 1 Time Weekly for 2 Weeks Indication: Rule out TB Read results between 48-72 hours after 1st and 2nd (1 week apart). If positive do chest x-ray. SunAug 14 13:30:00 EDT 2023August 28 13:29:00 EDT 2023 HYDROcodone 5 mg-acetaminophen 325 mg tablet 1 tab TABLET Oral PRN Every 4 Hours Indication: Pain SunAug 14 13:30:00 EDT 2023August 31 01:00:00 EDT 2023 amLODIPine 5 mg tablet 1 tab TABLET Oral 1 Time Daily Indication: HTN SunAug 13 17:02:00 EDT 2023August 31 01:00:00 EDT 2023 HYDROcodone 5 mg-acetaminophen 325 mg tablet 1 tab TABLET Oral PRN Every 4 Hours Indication: Pain SunAug 13 17:07:00 EDT 2023Aug 14 13:56:00 EDT 2023 multivitamin with iron tablet 1 tab TABLET Oral 1 Time Daily Indication: Supplement SunAug 13 17:10:00 EDT 2023August 31 01:00:00 EDT 2023 polyethylene glycoL 3350 17 gram oral powder packet 17 gm POWDER IN PACKET (EA) Oral PRN 1 Time Daily Indication: Constipation SunAug 13 17:12:00 EDT 2023August 31 01:00:00 EDT 2023 Stimulant Laxative Plus 8.6 mg-50 mg tablet 1 tab TABLET Oral 2 Times Daily Indication: Constipation SunAug 13 17:13:00 EDT 2023Aug 14 00:39:00 EDT 2023 enoxaparin 40 mg/0.4 mL subcutaneous syringe 40 mg SYRINGE (ML) Subcutaneous 1 Time Daily for 21 Days Indication: Clot prevention. SunAug 14 02:00:00 EDT 2023August 31 01:00:00 EDT 2023 Stimulant Laxative Plus 8.6 mg-50 mg tablet 2 tab TABLET Oral 2 Times Daily Indication: Constipation SunAug 14 02:00:00 EDT 2023Aug 25 13:44:00 EDT 2023 Problems Active Concerns * Age-related osteoporosis with current pathological fracture, left femur, subsequent encounter for fracture with routine healing* Code: * Start Date: SunAug 13 00:00:00 EDT 2023 * End Date: * Text: * Essential (primary) hypertension* Code: * Start Date: SunAug 13 00:00:00 EDT 2023 * End Date: * Text: * Presence of other bone and tendon implants* Code: * Start Date: SunAug 13 00:00:00 EDT 2023 * End Date: * Text: * assistant terminal manager (current) use of anticoagulants* Code: * Start Date: SunAug 13 00:00:00 EDT 2023 * End Date: * Text: * skilled nursing (current) use of bisphosphonates* Code: * Start Date: SunAug 13 00:00:00 EDT 2023 * End Date: * Text: * Adverse effect of other drugs, medicaments and biological substances, subsequent encounter* Code: * Start Date: SunAug 13 00:00:00 EDT 2023 * End Date: * Text: * Constipation, unspecified* Code: * Start Date: SunAug 13 00:00:00 EDT 2023 * End Date: * Text: * Unsteadiness on feet* Code: * Start Date: SunAug 13 00:00:00 EDT 2023 * End Date: * Text: * Weakness* Code: * Start Date: SunAug 13 00:00:00 EDT 2023 * End Date: * Text: Reason for Referral Past Medical History
--- OUTSIDE RECORDS SUMMARY | 2024-09-02 14:06 | XMS_ITS | Continuity of Care Document ---
Author Organization [facility] Address [address] [place] [address] Phone Care Team Providers Care Forensic Audit Expert Name Role Phone Flora Rosen Unavailable Unavailable Advance Directives Directive Yes / No Effective Date File Name No Information Encounters Encounter Description Practice Location Reason(s) For Visit Diagnoses Date Provider Providers Copied on Encounter [facility], [address], [place], [place], [address], [place] tel:[phone] [facility] No Information Nov0 6-200 0 Jessika Hines. [address] , [address], [place], [address], [place]. tel:[phone] Family History Family Member Type Diagnosis Age [...]
--- OUTSIDE RECORDS SUMMARY | 2024-09-02 14:06 | XMS_ITS ---
Author Name Auto Generated, Auto Generated Organization [employer] [facility] ices Address [address] [place] [address] Phone [phone] Care Team Providers Care Utilization Management Um Nurse Name Role Phone Rayna Pacheco Unavailable [phone] Manny Rice Unavailable [phone] Ish Ramirez Unavailable Functional Status No Results [...] 2023 * End Date: * Text: * buttermaker helper (current) use of anticoagulants* Code: * Start Date: SunAug 13 00:00:00 EDT 2023 * End Date: * Text: * senior care (current) use of bisphosphonates* Code: * Start [...]
--- OUTSIDE RECORDS SUMMARY | 2024-09-02 14:06 | XMS_ITS | Clinical Summary ---
Author Organization [facility] Address [address] [place] [address] Phone Care Team Providers Care Fundraising Consultant Name Role Phone Tiago Smith MD Primary Care Provider [phone] Allergies No known active allergies Medications sennosides-docu [...] of shaft of left femur, initial encounter ([facility]) Take 1 Tablet by mouth every [...] Encounters Date Type Department Care Team Description 08/19/2024 External Device Data [facility] ABSTRACTION Provider, Abstract 07/29/2024 External Device Data [facility] ABSTRACTION Provider, Abstract 07/29/2024 External Device Data [facility] ABSTRACTION Provider, Abstract 07/29/2024 External Device Data ST[facility] ABSTRACTION Provider, Abstract [...] 75+ series) 2020 INFLUENZA VACCINE (#1) 2023 Medical Devices Implanted Type Area Towboat Pilot Device Identifier Shelf Expiration Date Model / Serial / Lot 11mm / Ti Deshawn Frn / Pf 360mm / Left - Sterile Implanted:Qty: 1 on 08/08/2023 by Ramesh Watson MD at [facility] Left: Femur [employer] [facility] 06/28/2031 04.033.137 S / / [id number] Description:Material: Ti-gAI -7Nb 5.0 X 68 Nail Locking Screw Implanted:Qty: 1 on 08/08/2023 by Ramesh Watson MD at [facility] Left: Femur [employer] [facility] 04.045.068 / / Description:All Synthes comp onents, Requisition, #[id number] 5.0 X 34 Nail Locking Screw Implanted:Qty: 1 on 08/08/2023 by Ramesh Watson MD at [facility] Left: Femur [employer] [facility] 04.045.034 / / 5.0 X 62 Nail Locking Screw Implanted:Qty: 1 on 08/08/2023 by Ramesh Watson MD at [facility] Left: Femur [employer] [facility] 04.045.062 / / Insurance Advance Directives For more information, please contact: [phone] * Full Code (Latest Code Status on File) Date Activated Date Inactivated Comments 08/09/2023 12:58 AM 08/14/2023 4:34 PM * Full Code Date Activated Date Inactivated Comments 08/08/2023 11:39 AM 08/09/2023 12:58 AM * Default Full Code - Needs Discussion Date Activated Date Inactivated Comments 08/08/2023 8:47 AM 08/08/2023 11:39 AM Care Teams Fundraising Consultant Relationship Specialty Start Date End Date Tiago Smith MD [address] [place] [id number] PCP - General Family Practice 08/08/23
[2024-09-02 14:31] LABS: Hematocrit 45.1 % (37.0-47.0); Hemoglobin 14.3 g/dL (12.0-15.0); Mean Corpuscular HGB Conc 31.7 g/dl (32-36); Mean Corpuscular Hemoglobin 28.7 pg (26-34); Mean Corpuscular Volume 90.6 fl (80-100); Mean Platelet Volume 9.7 fl (7.4-10.4); Platelet Count Result 293 k/mm3 (150-375); Red Blood Count 4.98 M/mm3 (4.2-5.4); Red Cell Distribution Width 13.1 % (11.5-14.5); White Blood Count 7.3 K/mm3 (4.5-10.0)
[2024-09-02 14:47] LABS: Alanine Aminotransferase 15 U/L (6-35); Albumin Level 4.3 g/dL (3.5-5.1); Alkaline Phosphatase 90 U/L (38-126); Anion Gap 8 mmol/L (4-12); Aspartate Amino Transferase 19 U/L (14-36); Bilirubin,Total 0.4 mg/dL (0.2-1.3); Blood Urea Nitrogen 19 mg/dL (7-17); Calcium 9.1 mg/dL (8.4-10.2); Carbon Dioxide 26 mmol/L (22-30); Chloride 106 mmol/L (98-107); Estimated Glomerular Filt Rate > 60; Glucose 95 mg/dL (65-110); Magnesium 2.3 mg/dL (1.6-2.3); Potassium 4.3 mmol/L (3.4-5.0); Sodium 140 mmol/L (137-145)
[2024-09-02 15:41] LABS: Vitamin D 25 Hydroxy 38.1 ng/mL
[2024-09-05 14:08] LABS: Apolipoprotein B 110 mg/dL
== END 2024-09-02 14:04 | disposition home or self-care (01) ==
PROVIDERS: PCP Family Medicine; Visit Provider Family Medicine
DX: E78.5 Hyperlipidemia, unspecified (principal); I10 Essential (primary) hypertension; E55.9 Vitamin D deficiency, unspecified; M81.0 Age-related osteoporosis without current pathological fracture; Z00.00 Encounter for general adult medical examination without abnormal findings
CPT/HCPCS: 36415; 80053; 82172; 82306; 82607; 83735; 85027

== ENCOUNTER 2024-10-23 15:53 | Outpatient (CLI) | payer OTHER, SELFPAY ==
[2024-10-23 16:19] LABS: Alanine Aminotransferase 15 U/L (6-35); Aspartate Amino Transferase 29 U/L (14-36)
== END 2024-10-23 15:54 | disposition home or self-care (01) ==
LOC: ANHLAB 15:54
PROVIDERS: PCP Family Medicine; Visit Provider Podiatrist Foot & Ankle Surgery
DX: B35.1 Tinea unguium (principal)
CPT/HCPCS: 36415; 84450; 84460

== ENCOUNTER 2025-01-20 16:15 | Outpatient (CLI) | payer OTHER, SELFPAY ==
--- OUTSIDE RECORDS SUMMARY | 2000-03-05 08:00 | XMS_ITS | Continuity of Care Document ---
Author Organization Formerly [facility] Address [address] [place] [address] Phone Care Team Providers Care Councilman Name Role Phone Flora Rosen Unavailable Unavailable Advance Directives Directive Yes / No Effective Date File Name No Information Encounters Encounter Description Practice Location Reason(s) For Visit Diagnoses Date Provider Providers Copied on Encounter [facility], [address], [place], [place], [id number], [place] tel:[phone] [facility] No Information Nov-0 6-200 0 Jessika Hines. [address] , [address], [place], [address], [place]. tel:[phone] Family History Family Member Type Diagnosis Age At Onset No Information Payers Payer name Insurance type Covered republican ID Authoriza tion(s) No Information Social History Type Description Quantity Date Captured Comments Sex Female Smoking Status No Information Chief Complaint And Reason For Visit No Information Reason For Referral Reason For Referral No Information History Of Present Illness Encounter Date Complaint History Of Prese nt Illness No Information Functional Status Date Functional Assessmen t No Information Instructions Date Instruction Additional Infor mation No Information Assessments Type Assessment Date No Information Patient Care Teams Name Effective Dates (start - stop) Status Members No Information
--- OUTSIDE RECORDS SUMMARY | 2025-01-20 16:18 | XMS_ITS | Clinical Summary ---
Author Organization [facility] Address [address] [place] [address] Phone Care Team Providers Care Subgrade Tester Name Role Phone Tiago Smith MD Primary Care Provider [phone] Allergies No known active allergies Medications sennosides-docu [...] of shaft of left femur, initial encounter ([facility]) Take 1 Tablet by mouth every 4 [...] Encounters Date Type Department Care Team Description 12/03/2024 External Device Data [facility] ABSTRACTION Provider, Abstract 12/02/2024 External Device Data [facility] ABSTRACTION Provider, Abstract 11/12/2024 External Device Data [facility] ABSTRACTION Provider, Abstract 11/11/2024 External Device Data [facility] ABSTRACTION Provider, Abstract 10/21/2024 External Device Data ST[facility] ABSTRACTION Provider, Abstract [...] 6:34 AM CDT Height 157.5 cm (5' 2) 08/08/2023 6:34 AM CDT Body Mass Index 29.58 08/08/2023 6:34 AM CDT Plan of Treatment Health Maintenance Due Date Last Done Comments DTAP/TDAP/TD VACCINES (1 - Tdap) 1964 PNEUMOCOCCAL VACCINE 50+ YEARS (1 of 1 - PCV) 05/28/18 96 ZOSTER VACCINE (1 of 2) 1995 OSTEOPOROSIS SCREENING 2010 RSV VACCINE (60+ or ) (1 - 1-dose 75+ series) 2020 INFLUENZA VACCINE (#1) 2024 Medical Devices Implanted Type Area Web User Experience Strategist Device Identifier Shelf Expiration Date Model / Serial / Lot 11mm / Ti Deshawn Frn / Pf 360mm / Left - Sterile Implanted:Qty: 1 on 08/08/2023 by Ramesh Watson MD at [facility] Left: Femur [employer] [facility] 06/28/2031 04.033.137 S / / [id number] Description:Material: Ti-gAI -7Nb 5.0 X 68 Nail Locking Screw Implanted:Qty: 1 on 08/08/2023 by Ramesh Watson MD at [facility] Left: Femur [employer] [facility] 04.045.068 / / Description:All Synthes comp onents, Requisition, #[id number] 5.0 X 34 Nail Locking Screw Implanted:Qty: 1 on 08/08/2023 by Ramesh Watson MD at [facility] Left: Femur [employer] [facility] 04.045.034 / / 5.0 X 62 Nail Locking Screw Implanted:Qty: 1 on 08/08/2023 by Ramesh Watson MD at [facility] Left: Femur [employer] [facility] 04.045.062 / / Insurance [facility] Advance Directives For more information, please contact: [phone] * Full Code (Latest Code Status on File) Date Activated Date Inactivated Comments 08/09/2023 12:58 AM 08/14/2023 4:34 PM * Full Code Date Activated Date Inactivated Comments 08/08/2023 11:39 AM 08/09/2023 12:58 AM * Default Full Code - Needs Discussion Date Activated Date Inactivated Comments 08/08/2023 8:47 AM 08/08/2023 11:39 AM Care Teams Subgrade Tester Relationship Specialty Start Date End Date Tiago Smith MD [address] [place] [address] PCP - General Family Practice 08/08/23
[2025-01-20 16:49] LABS: Alanine Aminotransferase 15 U/L (6-35); Aspartate Amino Transferase 27 U/L (14-36)
== END 2025-01-20 16:16 | disposition home or self-care (01) ==
LOC: ANHLAB 16:16
PROVIDERS: PCP Family Medicine; Visit Provider Podiatrist Foot & Ankle Surgery
DX: B35.1 Tinea unguium (principal)
CPT/HCPCS: 36415; 84450; 84460

== ENCOUNTER 2025-04-21 15:48 | Outpatient (CLI) | payer OTHER, SELFPAY ==
--- OUTSIDE RECORDS SUMMARY | 2025-04-21 15:52 | XMS_ITS | Clinical Summary ---
Author Organization [facility] Address [address] [place] [address] Phone Care Team Providers Care Cable Television Program Director Name Role Phone Tiago Smith MD Primary Care Provider [phone] Allergies No known active allergies Medications sennosides-docu [...] of shaft of left femur, initial encounter ([facility]) Take 1 Tablet by mouth every [...] fracture of shaft of left femur 08/08/2023 Social History Tobacco Use Types Packs/Day Years [...] (#1) 2024 Medical Devices Implanted Type Area Carpenter Form Device Identifier Shelf Expiration Date Model / Serial / Lot 11mm / Ti Deshawn Frn / Pf 360mm / Left - Sterile Implanted:Qty: 1 on 08/08/2023 by Ramesh Watson MD at [facility] Left: [employer] [facility] 06/28/2031 04.033.137 S / / [id number] Description:Material: Ti-gAI -7Nb 5.0 X 68 Nail Locking Screw Implanted:Qty: 1 on 08/08/2023 by Ramesh Watson MD at [facility] Left: Femur [employer] [facility] 8 / / Description:All Synthes comp onents, Requisition, #[id number] 5.0 X 34 Nail Locking Screw Implanted:Qty: 1 on 08/08/2023 by Ramesh Watson MD at [facility] Left: Femur [employer] [facility] [address]40[address].034 / / 5.0 X 62 Nail Locking Screw Implanted:Qty: 1 on 08/08/2023 by Ramesh Watson MD at [facility] Left: Femur [employer] [facility] 062 / / Insurance [facility] Advance Directives For more information, please contact: [phone] * Full Code (Latest Code Status on File) Date Activated Date Inactivated Comments 08/09/2023 12:58 AM 08/14/2023 4:34 PM * Full Code Date Activated Date Inactivated Comments 08/08/2023 11:39 AM 08/09/2023 12:58 AM * Default Full Code - Needs Discussion Date Activated Date Inactivated Comments 08/08/2023 8:47 AM 08/08/2023 11:39 AM Care Teams Cable Television Program Director Relationship Specialty Start Date End Date Tiago Smith MD [address] [place] [address] PCP - General Family Practice 08/08/23
[2025-04-21 16:43] LABS: Alanine Aminotransferase 14 U/L (6-35); Aspartate Amino Transferase 31 U/L (14-36)
== END 2025-04-21 15:49 | disposition home or self-care (01) ==
LOC: ANHLAB 15:50
PROVIDERS: PCP Family Medicine; Visit Provider Podiatrist Foot & Ankle Surgery
DX: B35.1 Tinea unguium (principal)
CPT/HCPCS: 36415; 84450; 84460